=== PATIENT | female | born 1955 | race Caucasian/White ===

== ENCOUNTER 2024-07-23 12:27 | Inpatient (IN) | payer MEDICARE, MEDICAID ==
[~2024-07-23] VITALS: Ht 162.6 cm; Wt 71.6 kg
[2024-07-23 13:00] LABS: BASOPHILS # (AUTO) 0.1 X10'3 (0-0.2); BASOPHILS % (AUTO) 0.7 % (0-1); EOSINOPHILS % (AUTO) 0.1 % (0-6); HEMATOCRIT 40.8 % (35.0-45.0); HEMOGLOBIN 13.7 g/dl (12.0-16.0); LYMPHOCYTES # (AUTO) 3.2 X10'3 (1.1-4.8); LYMPHOCYTES % (AUTO) 19.9 % (21-51); MEAN CORPUSCULAR HEMOGLOBIN 30.1 PG (27.0-31.0); MEAN CORPUSCULAR HGB CONC 33.7 g/dL (33.0-36.5); MEAN CORPUSCULAR VOLUME 89.2 FL (78-98); MEAN PLATELET VOLUME 7.8 FL (7.4-10.4); MONOCYTES % (AUTO) 6.3 % (2-12); NEUTROPHILS # (AUTO) 11.9 X10'3 (1.8-7.7); PLATELET COUNT 360 X10'3 (140-440); RED BLOOD COUNT 4.57 X10'6 (4.20-5.60); RED CELL DISTRIBUTION WIDTH 13.4 % (11.5-14.5); WHITE BLOOD COUNT 16.3 X10'3 (4.5-11.0)
[2024-07-23 13:10] LABS: APTT 28 SECONDS (22-32); INR 1.1 INR; PROTHROMBIN TIME 11.2 SECONDS (9.0-12.0)
[2024-07-23 13:19] LABS: ALBUMIN 3.8 G/DL (3.4-5.0); ANION GAP 15 (8-16); BLOOD UREA NITROGEN 26 MG/DL (7-18); BUN/CREATININE RATIO 25.7 (10.0-20.0); CALCIUM 10.5 MG/DL (8.5-10.1); CHLORIDE 106 MMOL/L (99-107); CREATININE 1.01 MG/DL (0.40-0.90); GLUCOSE 144 MG/DL (70-104); MAGNESIUM 1.7 MG/DL (1.5-2.4); POTASSIUM 3.4 MMOL/L (3.5-5.1); PRO BRAIN NATRIURETIC PEPTIDE 7921 PG/ML (0-125); SODIUM 140 MMOL/L (135-145); TOTAL CARBON DIOXIDE 19.3 MMOL/L (24-32); eCRCL 47 ML/MIN; eGFR 55 ML/MIN
[2024-07-23] MEDS: morphine 4 MG/ML inj SYRINge IV ONE (13:37)
[2024-07-23] MEDS: ondansetron/PF 4mg/2ml inj IV ONE (13:37)
[2024-07-23] MEDS: LORazepam 2 mg/ml vial IV ONE (13:38)
[2024-07-23] MEDS ORDERED: magnesium Cl slow-release 64mg tablet PO PRN (14:30)
[2024-07-23] MEDS ORDERED: magnesium hydroxide 30ml (MOM) UD suspension PO PRN (14:30)
[2024-07-23] MEDS ORDERED: potassium Cl 20 mEq SR tablet PO PRN (14:30)
[2024-07-23] MEDS ORDERED: acetaminophen 325mg tablet PO PRN ×2 (14:30)
[2024-07-23] MEDS ORDERED: potassium Cl 40MEQ/1/2NS 520ml 520 ML IV PRN (14:30)
[2024-07-23] MEDS ORDERED: magnesium sulf-water 2g/50mL 50 ML IV PRN (14:30)
[2024-07-23] MEDS ORDERED: ipratropium/albuterol 3ml nebule NEB PRN (14:30)
[2024-07-23] MEDS ORDERED: HYDROcodone/acetaminophen 5mg/325mg tablet PO PRN (14:30)
[2024-07-23] MEDS ORDERED: magnesium sulf-water 4G/100mL 100 ML IV PRN (14:30)
[2024-07-23] MEDS: HEPARIN DRIP INITAL BOLUS --- DO NOT GIVE/ORDER MC ONE (14:48)
[2024-07-23] MEDS: ipratropium/albuterol 3ml nebule NEB SCH (15:00)
[2024-07-23 15:08] VITALS: PULSE 82; RESP 14; O2SAT 99
[2024-07-23] MEDS: heparin 25,000 UNIT/250ml bag 250 ML IV PRN (15:09)
[2024-07-23] MEDS: HEPARIN DRIP-CARDIAC**PHARMACIST-TO-DOSE IV ONE (15:10)
[2024-07-23] MEDS: MESSAGE TO NURSING IV ONE (15:11)
[2024-07-23 16:08] LABS: ALANINE AMINOTRANSFERASE 30 U/L (12-78); ALBUMIN 3.3 G/DL (3.4-5.0); ALBUMIN/GLOBULIN RATIO 0.8 (1.1-1.5); ALKALINE PHOSPHATASE 248 IU/L (46-116); ASPARTATE AMINO TRANSFERASE 37 U/L (10-37); BILIRUBIN,DIRECT 0.3 MG/DL (0-0.3); BILIRUBIN,TOTAL 1.5 MG/DL (0.1-1.0); TOTAL PROTEIN 7.4 G/DL (6.4-8.2)
[2024-07-23 16:16] LABS: HEMOGLOBIN A1C 5.9 % (4.5-6.2)
[2024-07-23 16:26] LABS: BILIRUBIN,URINE NEGATIVE (Neg); CLARITY,URINE CLOUDY (Clear); COLOR,URINE YELLOW (Yellow); GLUCOSE, URINE NEGATIVE (Neg); KETONES,URINE 15 mg/dl (Neg); LEUKOCYTE ESTERASE ,URINE NEGATIVE (Neg); NITRITES, URINE NEGATIVE (Neg); OCCULT BLOOD,URINE LARGE (Neg); PH,URINE 5.5 (4.8-8.0); PROTEIN,URINE 100 mg/dl (Neg); UROBILINOGEN,URINE 0.2 E.U/dL (0.2-1.0)
[2024-07-23 16:37] LABS: UA COLLECTION TYPE FOLEY CATH
[2024-07-23 16:42] LABS: BACTERIA,URINE 1+ /HPF (Neg); RBC,URINE TNTC /HPF (0-2); SQUAMOUS EPITHELIAL CELL,UR FEW /LPF (FEW); TRANSITIONAL EPI CELLS,URINE FEW /HPF
[2024-07-23 16:47] LABS: URINE AMPHETAMINE SCREEN NEGATIVE (Neg); URINE BARBITUATE SCREEN NEGATIVE (Neg); URINE BENZODIAZEPINES SCREEN NEGATIVE (Neg); URINE CANNABINOID SCREEN POSITIVE (Neg); URINE COCAINE SCREEN NEGATIVE (Neg); URINE METHADONE SCREEN NEGATIVE (Neg); URINE OPIATE SCREEN NEGATIVE (Neg); URINE PHENCYCLIDINE SCREEN NEGATIVE (Neg)
[2024-07-23 17:48] LABS: THYROID STIMULATING HORMONE 2.05 ulU/ml (0.34-4.50)
[2024-07-23] MEDS: normal saline 1000ml 1,000 ML IV SCH (18:41)
[2024-07-23] MEDS: aspirin 81mg, enteric-coated 1 TAB TABLET.DR PO ONE (18:42)
[2024-07-23] MEDS: atorvastatin 20mg tablet PO SCH (18:42)
[2024-07-23] MEDS: CefTRIAXone/D5W-Rocephin 1gm 50 ML IV SCH (18:42)
[2024-07-23] MEDS: DOXYCYCLINE 100MG CAPSULE PO SCH (18:49)
[2024-07-23 19:24] VITALS: PULSE 77; RESP 14; O2SAT 100
[2024-07-23 19:33] VITALS: PULSE 89; RESP 15
[2024-07-23] MEDS: docusate sod 100mg capsule PO SCH (19:56)
[2024-07-23] MEDS: K and/or MAG REPLACEMENT MC SCH (19:59)
[2024-07-23] MEDS: carVEDilol 3.125mg tablet PO SCH (19:59)
[2024-07-23] MEDS: potassium Cl 20 mEq SR tablet PO PRN (20:00)
[2024-07-23 21:25] LABS: APTT 38 SECONDS (22-32)
[2024-07-23 23:16] VITALS: PULSE 75; RESP 11; O2SAT 99
[2024-07-23 23:25] VITALS: PULSE 86; RESP 19
[2024-07-23] MEDS: heparin 10,000 units/1 ML INJ IV PRN (23:31)
[2024-07-24] VITALS (18 sets, daily range): BP systolic 104–133; BP diastolic 54–74; PULSE 75–89; RESP 11–20; TEMP 97.2–98.2; O2SAT 98–100
[2024-07-24] MEDS: MESSAGE TO NURSING IV ONE ×4 (02:59→22:42)
[2024-07-24 06:28] LABS: BASOPHILS # (AUTO) 0.1 X10'3 (0-0.2); EOSINOPHILS % (AUTO) 0.1 % (0-6); HEMATOCRIT 33.4 % (35.0-45.0); HEMOGLOBIN 11.3 g/dl (12.0-16.0); LYMPHOCYTES # (AUTO) 3.3 X10'3 (1.1-4.8); LYMPHOCYTES % (AUTO) 29.6 % (21-51); MEAN CORPUSCULAR HEMOGLOBIN 30.9 PG (27.0-31.0); MEAN CORPUSCULAR HGB CONC 33.9 g/dL (33.0-36.5); MEAN CORPUSCULAR VOLUME 91.1 FL (78-98); MEAN PLATELET VOLUME 8.4 FL (7.4-10.4); MONOCYTES # (AUTO) 0.7 X10'3 (0-0.9); MONOCYTES % (AUTO) 6.3 % (2-12); PLATELET COUNT 214 X10'3 (140-440); RED BLOOD COUNT 3.66 X10'6 (4.20-5.60); RED CELL DISTRIBUTION WIDTH 13.7 % (11.5-14.5); WHITE BLOOD COUNT 11.2 X10'3 (4.5-11.0)
[2024-07-24 06:45] LABS: ALBUMIN 3.1 G/DL (3.4-5.0); ANION GAP 7 (8-16); BILIRUBIN,TOTAL 1.2 MG/DL (0.1-1.0); BLOOD UREA NITROGEN 30 MG/DL (7-18); BUN/CREATININE RATIO 27.3 (10.0-20.0); CALCIUM 9.5 MG/DL (8.5-10.1); CHLORIDE 110 MMOL/L (99-107); GLUCOSE 97 MG/DL (70-104); MAGNESIUM 1.7 MG/DL (1.5-2.4); PHOSPHORUS 3.1 MG/DL (2.3-4.5); POTASSIUM 3.7 MMOL/L (3.5-5.1); SODIUM 144 MMOL/L (135-145); TOTAL CARBON DIOXIDE 27.3 MMOL/L (24-32); TOTAL PROTEIN 6.9 G/DL (6.4-8.2); eCRCL 56 ML/MIN; eGFR 50 ML/MIN
[2024-07-24 06:46] LABS: ALANINE AMINOTRANSFERASE 31 U/L (12-78); ALBUMIN/GLOBULIN RATIO 0.8 (1.1-1.5); ALKALINE PHOSPHATASE 216 IU/L (46-116); ASPARTATE AMINO TRANSFERASE 25 U/L (10-37); CHOL/HDL RATIO 3.1 (0.00-4.99); CHOLESTEROL 144 MG/DL (0-200); HDL CHOLESTEROL 47 MG/DL (35-60); LDL CHOLESTEROL 79 MG/DL (50-100); TRIGLYCERIDES 100 MG/DL (20-135)
[2024-07-24 06:58] LABS: INR 1.1 INR; PROTHROMBIN TIME 11.5 SECONDS (9.0-12.0)
[2024-07-24] MEDS: aspirin 81mg tab.chew PO SCH (07:45)
[2024-07-24] MEDS ORDERED: DICL100G59 TOP (08:02)
[2024-07-24] MEDS ORDERED: BUSP10TA11 PO (08:02)
[2024-07-24] MEDS ORDERED: OMEP40CA21 PO (08:02)
[2024-07-24] MEDS ORDERED: TAZA30CR TOP (08:02)
[2024-07-24] MEDS ORDERED: ASPI-1265 PO (08:02)
[2024-07-24] MEDS ORDERED: HYDR-3686 PO (08:02)
[2024-07-24] MEDS ORDERED: ATOR-429 PO (08:02)
[2024-07-24] MEDS ORDERED: INSU100I31 (08:02)
[2024-07-24] MEDS ORDERED: SEMA2PEN SUBCUT (08:02)
[2024-07-24] MEDS ORDERED: DOXY150T9 PO (08:20)
[2024-07-24] MEDS ORDERED: ONDA-103 PO (08:20)
[2024-07-24] MEDS ORDERED: LEVO25TA2 PO (08:20)
[2024-07-24] MEDS ORDERED: LISI20TA28 PO (08:20)
[2024-07-25] VITALS (11 sets, daily range): BP systolic 94–139; BP diastolic 52–74; PULSE 69–81; RESP 15–20; TEMP 97.4–98.2; O2SAT 97–100
[2024-07-25 04:27] LABS: BASOPHILS % (AUTO) 0.6 % (0-1); EOSINOPHILS # (AUTO) 0.1 X10'3 (0-0.9); EOSINOPHILS % (AUTO) 0.8 % (0-6); HEMATOCRIT 32.4 % (35.0-45.0); HEMOGLOBIN 11.2 g/dl (12.0-16.0); LYMPHOCYTES # (AUTO) 2.6 X10'3 (1.1-4.8); LYMPHOCYTES % (AUTO) 37.5 % (21-51); MEAN CORPUSCULAR HEMOGLOBIN 31.1 PG (27.0-31.0); MEAN CORPUSCULAR HGB CONC 34.7 g/dL (33.0-36.5); MEAN CORPUSCULAR VOLUME 89.6 FL (78-98); MEAN PLATELET VOLUME 7.6 FL (7.4-10.4); MONOCYTES # (AUTO) 0.4 X10'3 (0-0.9); MONOCYTES % (AUTO) 6.3 % (2-12); NEUTROPHILS # (AUTO) 3.8 X10'3 (1.8-7.7); NEUTROPHILS % (AUTO) 54.8 % (42-75); PLATELET COUNT 194 X10'3 (140-440); RED BLOOD COUNT 3.62 X10'6 (4.20-5.60); RED CELL DISTRIBUTION WIDTH 13.5 % (11.5-14.5); WHITE BLOOD COUNT 6.9 X10'3 (4.5-11.0)
[2024-07-25 04:40] LABS: INR 1.1 INR; PROTHROMBIN TIME 11.9 SECONDS (9.0-12.0)
[2024-07-25 04:44] LABS: ALANINE AMINOTRANSFERASE 28 U/L (12-78); ALBUMIN 2.9 G/DL (3.4-5.0); ALBUMIN/GLOBULIN RATIO 0.8 (1.1-1.5); ALKALINE PHOSPHATASE 201 IU/L (46-116); ANION GAP 7 (8-16); ASPARTATE AMINO TRANSFERASE 24 U/L (10-37); BILIRUBIN,TOTAL 1.2 MG/DL (0.1-1.0); BLOOD UREA NITROGEN 20 MG/DL (7-18); BUN/CREATININE RATIO 20.8 (10.0-20.0); CALCIUM 9.3 MG/DL (8.5-10.1); CHLORIDE 108 MMOL/L (99-107); CREATININE 0.96 MG/DL (0.40-0.90); GLUCOSE 117 MG/DL (70-104); MAGNESIUM 1.6 MG/DL (1.5-2.4); PHOSPHORUS 2.7 MG/DL (2.3-4.5); POTASSIUM 3.7 MMOL/L (3.5-5.1); SODIUM 142 MMOL/L (135-145); TOTAL CARBON DIOXIDE 26.8 MMOL/L (24-32); TOTAL PROTEIN 6.7 G/DL (6.4-8.2); eCRCL 64 ML/MIN; eGFR 58 ML/MIN
[2024-07-25] MEDS: MESSAGE TO NURSING IV ONE ×2 (05:15→12:57)
[2024-07-25] MEDS: levoTHYROXINE 25mcg tablet PO SCH (10:50)
[2024-07-26] VITALS (21 sets, daily range): BP systolic 95–162; BP diastolic 46–82; PULSE 70–85; RESP 10–19; TEMP 97.1–98.5; O2SAT 91–100
[2024-07-26 07:19] LABS: INR 1.1 INR; PROTHROMBIN TIME 11.4 SECONDS (9.0-12.0)
[2024-07-26 07:27] LABS: ALANINE AMINOTRANSFERASE 23 U/L (12-78); ALBUMIN 2.8 G/DL (3.4-5.0); ALBUMIN/GLOBULIN RATIO 0.7 (1.1-1.5); ALKALINE PHOSPHATASE 188 IU/L (46-116); ANION GAP 6 (8-16); ASPARTATE AMINO TRANSFERASE 20 U/L (10-37); BASOPHILS % (AUTO) 0.6 % (0-1); BILIRUBIN,TOTAL 1.1 MG/DL (0.1-1.0); BLOOD UREA NITROGEN 16 MG/DL (7-18); BUN/CREATININE RATIO 15.8 (10.0-20.0); CALCIUM 9.4 MG/DL (8.5-10.1); CHLORIDE 108 MMOL/L (99-107); CREATININE 1.01 MG/DL (0.40-0.90); EOSINOPHILS # (AUTO) 0.1 X10'3 (0-0.9); EOSINOPHILS % (AUTO) 2.1 % (0-6); GLUCOSE 141 MG/DL (70-104); HEMATOCRIT 33.5 % (35.0-45.0); HEMOGLOBIN 11.6 g/dl (12.0-16.0); LYMPHOCYTES % (AUTO) 33.3 % (21-51); MAGNESIUM 1.7 MG/DL (1.5-2.4); MEAN CORPUSCULAR HEMOGLOBIN 31.1 PG (27.0-31.0); MEAN CORPUSCULAR HGB CONC 34.6 g/dL (33.0-36.5); MEAN CORPUSCULAR VOLUME 89.9 FL (78-98); MEAN PLATELET VOLUME 8.2 FL (7.4-10.4); MONOCYTES # (AUTO) 0.4 X10'3 (0-0.9); MONOCYTES % (AUTO) 6.8 % (2-12); NEUTROPHILS # (AUTO) 3.4 X10'3 (1.8-7.7); NEUTROPHILS % (AUTO) 57.2 % (42-75); PLATELET COUNT 203 X10'3 (140-440); POTASSIUM 3.8 MMOL/L (3.5-5.1); RED BLOOD COUNT 3.72 X10'6 (4.20-5.60); RED CELL DISTRIBUTION WIDTH 13.4 % (11.5-14.5); SODIUM 142 MMOL/L (135-145); TOTAL PROTEIN 6.7 G/DL (6.4-8.2); eCRCL 61 ML/MIN; eGFR 55 ML/MIN
[2024-07-26] MEDS ORDERED: LIDOcaine 1% (10mg/ml) 2ml vial ONE (14:04)
[2024-07-26] MEDS ORDERED: midazolam 1 mg/ML 2ml injection ONE (14:04)
[2024-07-26] MEDS ORDERED: fentaNYL/PF 50MCG/1 ML 2ML syringe ONE (14:04)
[2024-07-26] MEDS ORDERED: verapamil 2.5 mg/ml inj IV ONE (14:04)
[2024-07-26] MEDS ORDERED: iohexol 350MG/ML 100ml bottle IV ONE ×2 (14:05→14:47)
[2024-07-26] MEDS ORDERED: nitroGLYCERIN 500mcg/5mL D5W 5 ML IV ONE (14:05)
[2024-07-26] MEDS ORDERED: heparin 1,000unit/ml 10ml vial 10 ML ONE (14:05)
[2024-07-26] MEDS ORDERED: ticagrelor 90mg tablet ONE (14:46)
[2024-07-26] MEDS ORDERED: aspirin 325mg tablet ONE (14:46)
[2024-07-26] MEDS: busPIRone 5mg tablet PO SCH (20:24)
[2024-07-26] MEDS: HYDROcodone/acetaminophen 10/325mg tab PO PRN (20:26)
[2024-07-27] VITALS (9 sets, daily range): BP systolic 108–134; BP diastolic 50–84; PULSE 72–96; RESP 12–20; TEMP 96.7–98.9; O2SAT 97–100
[2024-07-27 06:36] LABS: BASOPHILS % (AUTO) 0.6 % (0-1); EOSINOPHILS # (AUTO) 0.2 X10'3 (0-0.9); EOSINOPHILS % (AUTO) 2.3 % (0-6); HEMATOCRIT 37.6 % (35.0-45.0); HEMOGLOBIN 12.7 g/dl (12.0-16.0); LYMPHOCYTES # (AUTO) 2.1 X10'3 (1.1-4.8); LYMPHOCYTES % (AUTO) 30.4 % (21-51); MEAN CORPUSCULAR HEMOGLOBIN 30.4 PG (27.0-31.0); MEAN CORPUSCULAR HGB CONC 33.7 g/dL (33.0-36.5); MEAN CORPUSCULAR VOLUME 90.1 FL (78-98); MEAN PLATELET VOLUME 8.1 FL (7.4-10.4); MONOCYTES # (AUTO) 0.4 X10'3 (0-0.9); MONOCYTES % (AUTO) 5.4 % (2-12); NEUTROPHILS # (AUTO) 4.2 X10'3 (1.8-7.7); NEUTROPHILS % (AUTO) 61.3 % (42-75); PLATELET COUNT 230 X10'3 (140-440); RED BLOOD COUNT 4.17 X10'6 (4.20-5.60); RED CELL DISTRIBUTION WIDTH 13.2 % (11.5-14.5); WHITE BLOOD COUNT 6.9 X10'3 (4.5-11.0)
[2024-07-27 06:40] LABS: INR 1.1 INR; PROTHROMBIN TIME 11.1 SECONDS (9.0-12.0)
[2024-07-27 06:53] LABS: ALANINE AMINOTRANSFERASE 33 U/L (12-78); ALBUMIN/GLOBULIN RATIO 0.7 (1.1-1.5); ALKALINE PHOSPHATASE 194 IU/L (46-116); ANION GAP 6 (8-16); ASPARTATE AMINO TRANSFERASE 30 U/L (10-37); BILIRUBIN,TOTAL 1.1 MG/DL (0.1-1.0); BLOOD UREA NITROGEN 13 MG/DL (7-18); BUN/CREATININE RATIO 13.8 (10.0-20.0); CALCIUM 9.8 MG/DL (8.5-10.1); CHLORIDE 106 MMOL/L (99-107); CREATININE 0.94 MG/DL (0.40-0.90); GLUCOSE 137 MG/DL (70-104); MAGNESIUM 1.9 MG/DL (1.5-2.4); PHOSPHORUS 3.4 MG/DL (2.3-4.5); POTASSIUM 3.9 MMOL/L (3.5-5.1); SODIUM 141 MMOL/L (135-145); TOTAL PROTEIN 7.1 G/DL (6.4-8.2); eCRCL 66 ML/MIN; eGFR 59 ML/MIN
[2024-07-27] MEDS: aspirin 81mg, enteric-coated 1 TAB TABLET.DR PO SCH (08:00)
[2024-07-27] MEDS ORDERED: CEFD300C3 PO (09:00)
[2024-07-27] MEDS ORDERED: CARV-164 PO (09:00)
[2024-07-27] MEDS ORDERED: TICA90TA PO (09:00)
[2024-07-27] MEDS: ticagrelor 90mg tablet PO SCH (09:45)
[2024-07-28] VITALS (8 sets, daily range): BP systolic 102–185; BP diastolic 57–67; PULSE 75–93; RESP 14–23; TEMP 97.9–99.1; O2SAT 99–100
[2024-07-28 06:13] LABS: BASOPHILS % (AUTO) 0.5 % (0-1); EOSINOPHILS # (AUTO) 0.2 X10'3 (0-0.9); EOSINOPHILS % (AUTO) 2.5 % (0-6); HEMATOCRIT 34.5 % (35.0-45.0); HEMOGLOBIN 11.8 g/dl (12.0-16.0); LYMPHOCYTES % (AUTO) 24.1 % (21-51); MEAN CORPUSCULAR HEMOGLOBIN 31.1 PG (27.0-31.0); MEAN CORPUSCULAR HGB CONC 34.2 g/dL (33.0-36.5); MEAN CORPUSCULAR VOLUME 90.9 FL (78-98); MEAN PLATELET VOLUME 8.4 FL (7.4-10.4); MONOCYTES # (AUTO) 0.5 X10'3 (0-0.9); MONOCYTES % (AUTO) 5.7 % (2-12); NEUTROPHILS # (AUTO) 5.6 X10'3 (1.8-7.7); NEUTROPHILS % (AUTO) 67.2 % (42-75); PLATELET COUNT 206 X10'3 (140-440); RED BLOOD COUNT 3.79 X10'6 (4.20-5.60); RED CELL DISTRIBUTION WIDTH 13.3 % (11.5-14.5); WHITE BLOOD COUNT 8.3 X10'3 (4.5-11.0)
[2024-07-28 06:21] LABS: INR 1.1 INR; PROTHROMBIN TIME 11.4 SECONDS (9.0-12.0)
[2024-07-28 06:41] LABS: ALANINE AMINOTRANSFERASE 35 U/L (12-78); ALBUMIN 2.8 G/DL (3.4-5.0); ALBUMIN/GLOBULIN RATIO 0.7 (1.1-1.5); ALKALINE PHOSPHATASE 173 IU/L (46-116); ANION GAP 8 (8-16); ASPARTATE AMINO TRANSFERASE 29 U/L (10-37); BILIRUBIN,TOTAL 1.1 MG/DL (0.1-1.0); BLOOD UREA NITROGEN 14 MG/DL (7-18); BUN/CREATININE RATIO 17.1 (10.0-20.0); CALCIUM 9.5 MG/DL (8.5-10.1); CHLORIDE 108 MMOL/L (99-107); CREATININE 0.82 MG/DL (0.40-0.90); GLUCOSE 155 MG/DL (70-104); MAGNESIUM 1.8 MG/DL (1.5-2.4); POTASSIUM 3.9 MMOL/L (3.5-5.1); SODIUM 145 MMOL/L (135-145); TOTAL CARBON DIOXIDE 28.7 MMOL/L (24-32); TOTAL PROTEIN 6.6 G/DL (6.4-8.2); eCRCL 75 ML/MIN; eGFR 70 ML/MIN
[2024-07-28] MEDS: mag hydrox/Alum hydrox/simeth 30ml oral suspension PO PRN (16:28)
[2024-07-28] MEDS: ondansetron/PF 4mg/2ml inj IV PRN (18:53)
[2024-07-28] MEDS: metoclopramide 5 mg/ml inj IV PRN (20:25)
[2024-07-28] MEDS: hydrALAZINE 20mg/ml inj. IV ONE (21:56)
[2024-07-28] MEDS: pantoprazole 40 MG vial IV ONE (21:56)
[2024-07-29 06:00] VITALS: BP 102/66; PULSE 105; RESP 12; TEMP 99.2; O2SAT 100
[2024-07-29] MEDS: normal saline 500ml IV soln 500 ML IV ONE (07:35)
[2024-07-29 09:02] LABS: BASOPHILS % (AUTO) 0.2 % (0-1); EOSINOPHILS % (AUTO) 0.1 % (0-6); HEMATOCRIT 40.5 % (35.0-45.0); HEMOGLOBIN 13.6 g/dl (12.0-16.0); LYMPHOCYTES # (AUTO) 1.1 X10'3 (1.1-4.8); LYMPHOCYTES % (AUTO) 8.2 % (21-51); MEAN CORPUSCULAR HEMOGLOBIN 30.7 PG (27.0-31.0); MEAN CORPUSCULAR HGB CONC 33.7 g/dL (33.0-36.5); MEAN CORPUSCULAR VOLUME 91.2 FL (78-98); MEAN PLATELET VOLUME 8.6 FL (7.4-10.4); MONOCYTES # (AUTO) 0.4 X10'3 (0-0.9); MONOCYTES % (AUTO) 2.6 % (2-12); NEUTROPHILS # (AUTO) 12.1 X10'3 (1.8-7.7); NEUTROPHILS % (AUTO) 88.9 % (42-75); PLATELET COUNT 287 X10'3 (140-440); RED BLOOD COUNT 4.44 X10'6 (4.20-5.60); RED CELL DISTRIBUTION WIDTH 13.3 % (11.5-14.5); WHITE BLOOD COUNT 13.6 X10'3 (4.5-11.0)
[2024-07-29 09:19] LABS: ANION GAP 17 (8-16); BLOOD UREA NITROGEN 19 MG/DL (7-18); BUN/CREATININE RATIO 15.6 (10.0-20.0); CALCIUM 10.1 MG/DL (8.5-10.1); CHLORIDE 102 MMOL/L (99-107); CREATININE 1.22 MG/DL (0.40-0.90); POTASSIUM 3.9 MMOL/L (3.5-5.1); SODIUM 138 MMOL/L (135-145); TOTAL CARBON DIOXIDE 19.5 MMOL/L (24-32); eCRCL 51 ML/MIN; eGFR 44 ML/MIN
[2024-07-29 09:25] LABS: GLUCOSE 202 MG/DL (70-104)
[2024-07-29 10:00] VITALS: BP 111/58; PULSE 86; RESP 16; TEMP 97.5; O2SAT 99
[2024-07-29] MEDS: sodium bicarbonate (8.4%) inj. 150 MEQ in dextrose 5%-water 1,000 ML IV SCH (12:46)
[2024-07-29 15:54] LABS: ALBUMIN 3.1 G/DL (3.4-5.0); ANION GAP 8 (8-16); BLOOD UREA NITROGEN 25 MG/DL (7-18); BUN/CREATININE RATIO 18.1 (10.0-20.0); CALCIUM 9.6 MG/DL (8.5-10.1); CHLORIDE 104 MMOL/L (99-107); CREATININE 1.38 MG/DL (0.40-0.90); GLUCOSE 227 MG/DL (70-104); POTASSIUM 4.2 MMOL/L (3.5-5.1); SODIUM 141 MMOL/L (135-145); TOTAL CARBON DIOXIDE 28.6 MMOL/L (24-32); eCRCL 45 ML/MIN; eGFR 38 ML/MIN
[2024-07-29] MEDS: normal saline 1000ml 1,000 ML IV SCH (17:18)
[2024-07-29 18:00] VITALS: BP 112/53; PULSE 82; RESP 18; TEMP 98.6; O2SAT 99
[2024-07-29] MEDS: lactose-reduced food (Ensure High Protein) 237ml bottle PO SCH (18:00)
[2024-07-29 22:00] VITALS: BP 139/60; PULSE 76; RESP 14; TEMP 97.4; O2SAT 100
[2024-07-30 06:00] VITALS: BP 109/63; PULSE 69; RESP 12; TEMP 97.7; O2SAT 99
[2024-07-30] MEDS ORDERED: LACT1CAP26 PO (07:42)
[2024-07-30 07:47] LABS: BASOPHILS % (AUTO) 0.5 % (0-1); EOSINOPHILS # (AUTO) 0.2 X10'3 (0-0.9); EOSINOPHILS % (AUTO) 1.7 % (0-6); HEMATOCRIT 34.6 % (35.0-45.0); LYMPHOCYTES # (AUTO) 2.6 X10'3 (1.1-4.8); MEAN CORPUSCULAR HEMOGLOBIN 31.5 PG (27.0-31.0); MEAN CORPUSCULAR HGB CONC 34.7 g/dL (33.0-36.5); MEAN CORPUSCULAR VOLUME 90.6 FL (78-98); MONOCYTES # (AUTO) 0.6 X10'3 (0-0.9); MONOCYTES % (AUTO) 5.8 % (2-12); NEUTROPHILS # (AUTO) 6.6 X10'3 (1.8-7.7); PLATELET COUNT 252 X10'3 (140-440); RED BLOOD COUNT 3.82 X10'6 (4.20-5.60); RED CELL DISTRIBUTION WIDTH 13.9 % (11.5-14.5)
[2024-07-30] MEDS: lactobacillus rhamnosus 10,000 MMU CELLS/CAPSULE PO SCH (08:05)
[2024-07-30] MEDS: pantoprazole 40mg Tablet.DR PO SCH (08:12)
[2024-07-30 08:17] LABS: ALBUMIN 2.9 G/DL (3.4-5.0); ANION GAP 8 (8-16); BLOOD UREA NITROGEN 19 MG/DL (7-18); BUN/CREATININE RATIO 17.1 (10.0-20.0); CHLORIDE 105 MMOL/L (99-107); CREATININE 1.11 MG/DL (0.40-0.90); GLUCOSE 171 MG/DL (70-104); POTASSIUM 3.9 MMOL/L (3.5-5.1); SODIUM 139 MMOL/L (135-145); TOTAL CARBON DIOXIDE 26.4 MMOL/L (24-32); eCRCL 42 ML/MIN; eGFR 49 ML/MIN
== END 2024-07-30 08:30 | disposition home or self-care (01) | DRG 321 ==
LOC: ER 12:28 → ED HOLD 13:44 → PCU 3S 23:45 → SUR 3N 07-27 19:25
PROVIDERS: ADMIT Family Medicine; ATTEND Family Medicine
PROC: 027034Z Dilation of Coronary Artery, One Artery with Drug-eluting Intraluminal Device, Percutaneous Approach (ICD-10-PCS; principal; 2024-07-26)
PROC: 4A023N7 Measurement of Cardiac Sampling and Pressure, Left Heart, Percutaneous Approach (ICD-10-PCS; 2024-07-26)
PROC: B2111ZZ Fluoroscopy of Multiple Coronary Arteries using Low Osmolar Contrast (ICD-10-PCS; 2024-07-26)
PROC: B2151ZZ Fluoroscopy of Left Heart using Low Osmolar Contrast (ICD-10-PCS; 2024-07-26)
DX: I21.4 Non-ST elevation (NSTEMI) myocardial infarction (principal); J18.9 Pneumonia, unspecified organism; J96.01 Acute respiratory failure with hypoxia; K52.9 Noninfective gastroenteritis and colitis, unspecified; F41.9 Anxiety disorder, unspecified; I10 Essential (primary) hypertension; N30.90 Cystitis, unspecified without hematuria; Z88.2 Allergy status to sulfonamides; Z88.5 Allergy status to narcotic agent; Z88.6 Allergy status to analgesic agent; Z91.040 Latex allergy status
CPT/HCPCS: 93306; 93458; 96374; 96375; 99285; C9600; 36415; 71045; 76700; 80048; 80053; 80061; 80076; 80305; 81001; 82948; 83036; 83605; 83735; 83880; 84100; 84145; 84443; 84484; 85025; 85610; 85730; 87040; 87081; 87088; 93005; 94640; 94760; 97116; 97161; 99152; 99153; A6258; C1725; C1751; C1769; C1874; C1894; G0378; J0360; J0696; J1644; J2003; J2060; J2250; J2270; J2405; J2470; J2765; J3010; J3490; J7030; J7040; J7070; Q9967